=== PATIENT | female | born 1950 | race Caucasian/White ===

== ENCOUNTER 2021-09-20 04:28 | Emergency (ER) | payer OTHER ==
[2021-09-20 04:56] LABS: Absolute Lymphocytes (CBC) 0.4 K/uL (0.7-4.9); Hematocrit 42.8 % (36.0-45.0); Lymphocytes % 2.9 % (15.3-44.8); RBC Red Blood Cell Count 5.05 M/uL (3.86-4.86)
[2021-09-20] MEDS ORDERED: FAMOTIDINE 20 MG/2 ML VIAL IV ONE (05:00)
[2021-09-20] MEDS ORDERED: NA CHLORIDE 0.9% 1,000 ML ONE ×2 (05:00→07:00)
[2021-09-20] MEDS ORDERED: ONDANSETRON 4 MG/2 ML VIAL ONE (05:03)
[2021-09-20 05:15] LABS: Albumin 4.3 g/dL (3.4-5.0); Bilirubin Total 0.8 mg/dL (0.2-1.0); Potassium 3.7 mmol/L (3.5-5.1); Protein, Total 9.2 g/dL (6.4-8.2)
[2021-09-20 05:24] LABS: Blood Morphology Comment NOT SEEN (NOT SEEN); Platelet Estimate ADEQ
[2021-09-20] MEDS ORDERED: PROMETHAZINE INJ 25 MG/ML AMP ONE (06:59)
[2021-09-20] MEDS ORDERED: METRONIDAZOLE 500mg IVPB 500 MG/100 ML BAG IV ONE (06:59)
[2021-09-20] MEDS ORDERED: CIPROFLOXACIN 400mg IV 400 MG/200 ML BAG IV ONE (06:59)
--- NOTE | 2021-09-20 08:55 | ER ---
Nurse's Notes [facility] Name: Ema Haywood Age: 70 yrs Sex: Female : 1950 Arrival Date: 09/20/2021 Time: 04:31 Bed 6 Private MD: Diagnosis: Abdominal pain, Generalized;Infectious gastroenteritis and colitis, unspecified Presentation: 09/20 04:44 Chief complaint: Patient states: nausea, vomiting, diarrhea started at midnight. al4 Coronavirus screen: Vaccine status: Patient reports receiving the 2nd dose of the covid vaccine. Ebola Screen: No symptoms or risks identified at this time. Risk Assessment: Do you want to hurt yourself or someone else? Patient reports no desire to harm self or others. Onset of symptoms was September 20, 2021. 04:44 Method Of Arrival: Wheelchair al4 04:44 Acuity: PEYMAN 3 al4 04:53 Initial Sepsis Screen: Does the patient meet any 2 criteria? No. Patient's initial al4 sepsis screen is negative. Does the patient have a suspected source of infection? No. Patient's initial sepsis screen is negative. Triage Assessment: 04:46 General: Appears uncomfortable, Behavior is calm, cooperative. Pain: Complains of pain al4 in abdomen. Neuro: Level of Consciousness is awake, alert, obeys commands, Oriented to person, place, time, situation. Cardiovascular: Capillary refill < 3 seconds Patient's skin is warm and dry. Respiratory: Airway is patent Respiratory effort is unlabored, Respiratory pattern is regular. GI: Reports diarrhea, nausea, vomiting. Historical: - Allergies: 04:46 Sulfa (Sulfonamide Antibiotics); al4 04:46 IV contrast; al4 04:49 NSAIDS; al4 04:49 sulfates; al4 - Immunization history:: Adult Immunizations up to date. - Social history:: Smoking status: Patient denies any tobacco usage or history of. - Family history:: not pertinent. - Hospitalizations: : No recent hospitalization is reported. Screenin:16 Abuse screen: Denies threats or abuse. Nutritional screening: No deficits noted. jd3 Tuberculosis screening: No symptoms or risk factors identified. Fall Risk Ambulatory Aid- None/Bed Rest/Nurse Assist (0 pts). Gait- Normal/Bed Rest/Wheelchair (0 pts) Mental Status- Oriented to own ability (0 pts). Total Mcleod Fall Scale indicates No Risk (0-24 pts). Assessment: 05:48 Reassessment: RN educated patient on the need for a urine sample. Patient states she al4 does not think she can go at this time. 05:51 General: Appears in no apparent distress. Behavior is calm, cooperative, patient states al4 she is having muscle cramps that started at home [employer] . Pain: Complains of pain in abdomen. Neuro: Level of Consciousness is awake, alert, obeys commands, Oriented to person, place, time, situation. Cardiovascular: Patient's skin is warm and dry. Rhythm is regular. Respiratory: Airway is patent Respiratory effort is unlabored, Respiratory pattern is regular. GI: Bowel sounds present X 4 quads. Abd is soft and non tender X 4 quads. GI: Reports nausea, vomiting. GI: Abdomen is non-distended. : No signs and/or symptoms were reported regarding the genitourinary system. Musculoskeletal: Circulation, motion, and sensation intact. 06:42 Reassessment: Patient appears in no apparent distress at this time. Patient is alert, al4 oriented x 3, equal unlabored respirations, skin warm/dry/pink. 06:53 Reassessment: MD Kiran notified of the need for urine. MD ordered more fluids to al4 encourage patient to void. 07:14 General: Appears in no apparent distress. comfortable, Behavior is calm, cooperative, jd3 appropriate for age. Pain: Complains of pain in abdomen. Neuro: Anderson Agitation-Sedation Scale (RASS): 0 - Alert and Calm Level of Consciousness is awake, alert, obeys commands, Oriented to person, place, time, situation. Cardiovascular: Capillary refill < 3 seconds Patient's skin is warm and dry. Respiratory: Airway is patent Respiratory effort is even, unlabored, Respiratory pattern is regular, symmetrical. GI: Abdomen is non-distended, Abd is soft and non tender X 4 quads. Reports lower abdominal pain, upper abdominal pain, nausea, vomiting. : No signs and/or symptoms were reported regarding the genitourinary system. EENT: No signs and/or symptoms were reported regarding the EENT system. Derm: Skin is intact, Skin is dry, Skin is normal, Skin temperature is warm. Musculoskeletal: Circulation, motion, and sensation intact. Range of motion: intact in all extremities. 08:27 Reassessment: Patient appears in no apparent distress at this time. Patient and/or jd3 family updated on plan of care and expected duration. Pain level reassessed. Patient is alert, oriented x 3, equal unlabored respirations, skin warm/dry/pink. awaiting results and disposition. 08:54 Reassessment: Patient appears in no apparent distress at this time. Patient and/or jd3 family updated on plan of care and expected duration. Pain level reassessed. Patient is alert, oriented x 3, equal unlabored respirations, skin warm/dry/pink. pt reporting slight cramps with PO challenge, but reports no nausea and feeling better. provider notified. Vital Signs: 04:49 Weight 59.87 kg; Height 5 ft. 1 in. (154.94 cm); al4 04:49 BP 116 / 64; Pulse 69; Resp 12 S; Temp 97.7(O); Pulse Ox 100% on R/A; Pain 9/10; al4 06:06 BP 120 / 79; Pulse 71; Resp 18 S; Pulse Ox 100% on R/A; al4 07:15 BP 147 / 99; Pulse 112; Resp 18 S; Pulse Ox 95% on R/A; jd3 08:27 BP 114 / 69; Pulse 82; Resp 16 S; Pulse Ox 100% on R/A; jd3 04:49 Body Mass Index 24.94 (59.87 kg, 154.94 cm) al4 ED Course: 04:31 Patient arrived in ED. bp1 04:31 Hilario Kiran MD is Attending Physician. rn 04:44 Fili Keith is Primary Nurse. al4 04:46 Triage completed. al4 04:46 Arm band placed on. al4 04:51 Inserted saline lock: 20 gauge in left antecubital area, using aseptic technique. Blood lp1 collected. 05:03 CT Abd/Pelvis - Without Contrast In Process Unspecified. EDMS 07:16 Patient has correct armband on for positive identification. Bed in low position. Call jd3 light in reach. Side rails up X2. Pulse ox on. NIBP on. 07:17 Primary Nurse role handed off by Fili Keith jd3 07:17 Damaso Loredo RN is Primary Nurse. jd3 07:25 Attending Physician role handed off by Hilario Kiran MD kdr 07:25 Todd Collins MD is Attending Physician. kdr 09:31 No provider procedures requiring assistance completed. IV discontinued, intact, jd3 bleeding controlled, No redness/swelling at site. Pressure dressing applied. Administered Medications: 05:07 Drug: Zofran (Ondansetron) 4 mg Route: IVP; Site: left antecubital; al4 05:55 Follow up: Response: No adverse reaction al4 05:09 Drug: Pepcid (famotidine) 20 mg Route: IVP; Site: left antecubital; al4 05:55 Follow up: Response: No adverse reaction al4 05:12 Drug: NS 0.9% 1000 ml Route: IV; Rate: 1 bolus; Site: left antecubital; al4 06:06 Follow up: Response: No adverse reaction; IV Status: Completed infusion al4 06:59 Drug: NS 0.9% 1000 ml Route: IV; Rate: 1000 ml; Site: left antecubital; lg3 07:55 Follow up: Response: No adverse reaction; IV Status: Completed infusion jd3 06:59 Drug: Phenergan (promethazine) 12.5 mg Route: IVP; Site: left antecubital; lg3 07:51 Follow up: Response: No adverse reaction jd3 06:59 Drug: Flagyl (metroNIDAZOLE) 500 mg Volume: 100 ml; Route: IVPB; Rate: 200 ml/hr; lg3 Infused Over: 30 mins; Site: left antecubital; 07:15 Follow up: Response: No adverse reaction; IV Status: Completed infusion jd3 07:44 Drug: Cipro (ciprofloxacin) 400 mg Volume: 200 ml; Route: IVPB; Infused Over: 60 mins; jd3 Site: left antecubital; 08:41 Follow up: Response: No adverse reaction; IV Status: Completed infusion jd3 Outcome: 08:55 Discharge ordered by . kdr 09:31 Discharged to home via wheelchair, with family. jd3 09:31 Condition: stable 09:31 Discharge instructions given to patient, family, Instructed on discharge instructions, follow up and referral plans. medication usage, Demonstrated understanding of instructions, follow-up care, medications, Prescriptions given X 2. 09:34 Patient left the ED. jd3 Signatures: Dispatcher [employer] EDMS Todd Collins MD MD kdr Nieto, Roman, MD MD rn Pena, Laura, RN RN lp1 Damaso Loredo RN RN jd3 Ritu Chavez RN RN lg3 Keiko Waller Alexis al4 Corrections: (The following items were deleted from the chart) 08:54 08:54 Reassessment: Patient appears in no apparent distress at this time. Patient jd3 and/or family updated on plan of care and expected duration. Pain level reassessed. Patient is alert, oriented x 3, equal unlabored respirations, skin warm/dry/pink. pt reporting slight cramps with PO challenge, but reports no nausea and feeling better. jd3
--- NOTE | 2021-09-20 08:55 | EDPHYS ---
Physician Documentation [facility] Name: Ema Haywood Age: 70 yrs Sex: Female : 1950 Arrival Date: 09/20/2021 Time: 04:31 Bed 6 Private MD: ED Physician Todd Collins HPI: 09/20 04:43 This 70 yrs old Female presents to ER via Unassigned with complaints of rn Vomiting/Diarrhea, Pain All Over. 04:43 The patient presents to the emergency department with nausea, vomiting, diarrhea, rn abdominal pain, of the right lower quadrant, described as crampy, and does not radiate. Onset: The symptoms/episode began/occurred 3 day(s) ago. Possible causes: unknown. The symptoms are aggravated by nothing. The symptoms are alleviated by nothing. Associated signs and symptoms: Pertinent positives: abdominal pain, anorexia, diarrhea, nausea, vomiting, Pertinent negatives: GI bleeding. Severity of symptoms: At their worst the symptoms were moderate in the emergency department the symptoms are unchanged. The patient has not experienced similar symptoms in the past. The patient has not recently seen a physician. Pt reports right lower abd pain, cramping, assoc with nausea/vomiting/diarrhea for a few days, states multiple family members with similar symptoms currently at home. NO cough/congestion/chest pain.. Historical: - Allergies: 04:46 Sulfa (Sulfonamide Antibiotics); al4 04:46 IV contrast; al4 04:49 NSAIDS; al4 04:49 sulfates; al4 - Immunization history:: Adult Immunizations up to date. - Social history:: Smoking status: Patient denies any tobacco usage or history of. - Family history:: not pertinent. - Hospitalizations: : No recent hospitalization is reported. ROS: 04:43 Constitutional: + chills Eyes: Negative for injury, pain, redness, and discharge, ENT: rn Negative for injury, pain, and discharge, Neck: Negative for injury, pain, and swelling, Cardiovascular: Negative for chest pain, palpitations, and edema, Respiratory: Negative for shortness of breath, cough, wheezing, and pleuritic chest pain, Abdomen/GI: + abd cramping and nausea/vomiting/diarrhea Back: Negative for injury and pain, : Negative for injury, bleeding, discharge, and swelling, MS/Extremity: Negative for injury and deformity, Skin: Negative for injury, rash, and discoloration, Neuro: + generalized weakness and fatigue. Exam: 04:43 Constitutional: This is a well developed, well nourished patient who is awake, alert, rn appears like doesn't feel well. Able to move from wheelchair to bed on her own power. Head/Face: Normocephalic, atraumatic. Eyes: Periorbital areas with no swelling, redness, or edema. ENT: dry MM Cardiovascular: Regular rate and rhythm Respiratory: No increased work of breathing, no retractions or nasal flaring. Abdomen/GI: Soft, mild RLQ tenderness, no reobund/guarding. Skin: Warm, dry MS/ Extremity: Pulses equal, no cyanosis. Neuro: Awake and alert, GCS 15 Vital Signs: 04:49 Weight 59.87 kg; Height 5 ft. 1 in. (154.94 cm); al4 04:49 BP 116 / 64; Pulse 69; Resp 12 S; Temp 97.7(O); Pulse Ox 100% on R/A; Pain 9/10; al4 06:06 BP 120 / 79; Pulse 71; Resp 18 S; Pulse Ox 100% on R/A; al4 07:15 BP 147 / 99; Pulse 112; Resp 18 S; Pulse Ox 95% on R/A; jd3 08:27 BP 114 / 69; Pulse 82; Resp 16 S; Pulse Ox 100% on R/A; jd3 04:49 Body Mass Index 24.94 (59.87 kg, 154.94 cm) al4 MDM: 04:31 Patient medically screened. rn 06:50 ED course: Pt still nauseated, hasn't given urine, ordered more fluids and phenergan. rn Will sign out to Dr. Collins with plans to reeval and PO challenge. . 06:57 Transition of care: After a detail discussion of the patient's case, care is rn transferred to Todd Collins MD. 08:37 Data reviewed: vital signs, nurses notes, lab test result(s), radiologic studies. kdr Counseling: I had a detailed discussion with the patient and/or guardian regarding: the historical points, exam findings, and any diagnostic results supporting the discharge/admit diagnosis, lab results, radiology results. ED course: Patient states that she is feeling better at this time. She is no longer nauseated. She feels a little soreness in her abdomen but otherwise is at her baseline. We will try a p.o. challenge and if she tolerates that, she will go home on antibiotics and anti-emesis medication. 09/20 04:31 Order name: Flu; Complete Time: 07:42 rn 09/20 04:42 Order name: CBC with Diff; Complete Time: 06:43 rn 09/20 04:42 Order name: CMP; Complete Time: 06:43 rn 09/20 04:42 Order name: Lipase; Complete Time: 06:43 rn 09/20 04:43 Order name: SARS-COV-2 RT PCR (Document "Date of Onset" if Symptomatic) rn 09/20 04:42 Order name: CT Abd/Pelvis - Without Contrast rn 09/20 04:59 Order name: Manual Differential; Complete Time: 06:43 EDMS 09/20 04:42 Order name: IV Saline Lock; Complete Time: 05:14 rn 09/20 04:42 Order name: Labs collected and sent; Complete Time: 05:14 rn 09/20 04:42 Order name: Cardiac monitoring; Complete Time: 04:53 rn 09/20 08:37 Order name: PO challenge; Complete Time: 08:53 kdr Administered Medications: 05:07 Drug: Zofran (Ondansetron) 4 mg Route: IVP; Site: left antecubital; al4 05:55 Follow up: Response: No adverse reaction al4 05:09 Drug: Pepcid (famotidine) 20 mg Route: IVP; Site: left antecubital; al4 05:55 Follow up: Response: No adverse reaction al4 05:12 Drug: NS 0.9% 1000 ml Route: IV; Rate: 1 bolus; Site: left antecubital; al4 06:06 Follow up: Response: No adverse reaction; IV Status: Completed infusion al4 06:59 Drug: NS 0.9% 1000 ml Route: IV; Rate: 1000 ml; Site: left antecubital; lg3 07:55 Follow up: Response: No adverse reaction; IV Status: Completed infusion jd3 06:59 Drug: Phenergan (promethazine) 12.5 mg Route: IVP; Site: left antecubital; lg3 07:51 Follow up: Response: No adverse reaction jd3 06:59 Drug: Flagyl (metroNIDAZOLE) 500 mg Volume: 100 ml; Route: IVPB; Rate: 200 ml/hr; lg3 Infused Over: 30 mins; Site: left antecubital; 07:15 Follow up: Response: No adverse reaction; IV Status: Completed infusion jd3 07:44 Drug: Cipro (ciprofloxacin) 400 mg Volume: 200 ml; Route: IVPB; Infused Over: 60 mins; jd3 Site: left antecubital; 08:41 Follow up: Response: No adverse reaction; IV Status: Completed infusion jd3 Disposition Summary: 09/20/21 08:55 Discharge Ordered Location: Home kdr Problem: new kdr Symptoms: have improved kdr Condition: Stable kdr Diagnosis - Abdominal pain, Generalized kdr - Infectious gastroenteritis and colitis, unspecified kdr Followup: kdr - With: Private Physician - When: 2 - 3 days - Reason: If symptoms return, Further diagnostic work-up, Recheck today's complaints, Continuance of care, Re-evaluation by your physician Discharge Instructions: - Discharge Summary Sheet kdr Forms: - Medication Reconciliation Form kdr - Thank You Letter kdr - Antibiotic Education kdr Prescriptions: - Flagyl 500 mg Oral Tablet - take 1 tablet by ORAL route every 8 hours for 7 days; 21 tablet; Refills: 0, kdr Product Selection Permitted - Cipro 500 mg Oral Tablet - take 1 tablet by ORAL route every 12 hours for 7 days; 14 tablet; Refills: 0, kdr Product Selection Permitted - Pepcid 20 mg Oral Tablet - take 1 tablet by ORAL route every 12 hours for 5 days; 10 tablet; Refills: 0, kdr Product Selection Permitted - Zofran 4 mg Oral Tablet - take 1 tablet by ORAL route every 4-6 hours As needed; 12 tablet; Refills: 0, kdr Product Selection Permitted Signatures: Dispatcher [employer] Todd Hassan MD MD kdr Hilario Kiran MD MD rn Davies, Jonathon, RN RN jd3 Ritu Chavez RN RN lg3 Fili Keith
[2021-09-20 09:40] VITALS: TEMP 97.7
[2021-09-20 09:44] VITALS: BP 114/69; O2SAT 100
--- NOTE | 2021-09-20 15:58 | RAD REPORT ---
EXAM DESCRIPTION: CT - Abdomen Pelvis Wo Contrast - 09/20/2021 6:32 am CLINICAL HISTORY: Abdominal pain, acute, nonlocalized COMPARISON: None. TECHNIQUE: CT ABDOMEN PELVIS WITHOUT IV CONTRAST on 09/20/2021 4:42 AM CDT This exam was performed according to our departmental dose-optimization program, which includes autom ated exposure control, adjustment of the mA and/or kV according to patient size and/or use of iterati ve reconstruction technique. FINDINGS: Lower lungs are clear. Abdomen: There is a single ill-defined lateral right hepatic lobe low-density nodule measuring 1.1 cm . There is no biliary dilatation. There are tiny layering gallstones in the gallbladder. There is a s mall hiatal hernia. The pancreas and spleen are normal in appearance. Adrenal glands are normal. Kidn eys are mildly atrophic. Abdominal aorta is normal in course and caliber without aneurysm. There is no free air. There is no r etroperitoneal adenopathy. Pelvis: There is fluid throughout especially the proximal colon. There are scattered fluid throughout multiple small bowel loops without significant dilatation there is a central calcification within th e small bowel mesentery measuring 1 cm. Urinary bladder is unremarkable. There is no free fluid. Uter us is not seen. Appendix is not seen. Skeleton: There are no acute osseous findings. No suspicious bony lesions. IMPRESSION: Probable areas of small and large bowel enteritis. Indeterminate calcified nodule/lymph node in the central mesentery. Electronically signed by: Ryan Ferrer MD 09/20/2021 5:58 AM CDT Due to temporary technical issues with the PACS/Fluency reporting system, reports are being signed by the in house radiologists without review as a courtesy to insure prompt reporting. The interpreting radiologist is fully responsible for the content of the report.
== END 2021-09-20 09:34 | disposition home or self-care (01) ==
LOC: ER 04:28
DX: A09 Infectious gastroenteritis and colitis, unspecified (principal); Z88.2 Allergy status to sulfonamides; Z88.6 Allergy status to analgesic agent; Z91.041 Radiographic dye allergy status; Z20.822 Contact with and (suspected) exposure to COVID-19
CPT/HCPCS: 96365; 96367; 96361; 85025; 36415; 83690; 80053; 87804 ×2; 74176; 96375; 99284; U0003; J2550; J7030 ×2; J3490 ×2; J2405; J0744

== ENCOUNTER 2024-04-24 23:21 | Emergency (ER) | payer OTHER ==
[2024-04-25 00:23] LABS: Absolute Basophils 0.1 K/uL (0-0.5); Absolute Eosinophils 0.5 K/uL (0-0.5); Absolute Monocytes 0.6 K/uL (0.1-1.3); Absolute Neutrophil 3.2 K/uL (1.8-8.0); Basophils % 1.4 % (0-1.3); Eosinophils % 7.8 % (0-4.4); Hematocrit 39.2 % (36.0-45.0); Lymphocytes % 31.3 % (15.3-44.8); MCH 28.8 pg (27.0-35.0); MCHC 33.3 g/dL (32.0-36.0); MCV 86.7 fL (80-100); MPV 8.6 fL (7.6-11.3); Neutrophils % 50.5 % (41.7-73.7); Nucleated Red Blood Cells % 0.2 % (0-0); Platelets 262 thou/uL (152-406); RBC Red Blood Cell Count 4.52 M/uL (3.86-4.86); Red Cell Distribution Width 12.9 % (12.1-15.2)
[2024-04-25 00:24] LABS: PT Prothrombin Time 11.2 SECONDS (9.4-12.5)
[2024-04-25 00:36] LABS: ALT/SGPT 27 U/L (13-56); AST/SGOT 23 U/L (15-37); Albumin 3.7 g/dL (3.4-5.0); Albumin/Globulin Ratio 0.9 (1.1-1.8); Alkaline Phosphatase 89 U/L (45-117); Anion Gap 8.7 mEq/L (5.0-15.0); BUN Blood Urea Nitrogen 14 mg/dL (7-18); Bicarbonate 27 mEq/L (21-32); Bilirubin Total 0.3 mg/dL (0.2-1.0); Globulin 4.1 g/dL (2.3-3.5); Glomerular Filtration Rate 81 ml/min (=/>90); Glucose Level 100 mg/dL (74-106); Magnesium 1.8 mg/dL (1.6-2.4); NT PRO-BNP 55 pg/mL (<125); Potassium 2.7 mEq/L (3.5-5.1); Protein, Total 7.8 g/dL (6.4-8.2); Sodium Level 139 mEq/L (136-145)
[2024-04-25 00:37] LABS: Bilirubin Direct < 0.2 mg/dL (0-0.2); Bilirubin Indirect, Calculated 0.1 mg/dL (0.2-0.8)
[2024-04-25 01:00] LABS: Thyroid Stimulating Hormone 0.708 uIU/mL (0.358-3.740)
[2024-04-25] MEDS ORDERED: methocarbamoL 750 MG TAB ONE (01:43)
[2024-04-25] MEDS ORDERED: HYDROCODONE/APAP 5/325 MG TAB ONE (01:43)
--- NOTE | 2024-04-25 04:02 | EDPHYS ---
Physician Documentation [facility] Name: Ema Haywood Age: 73 yrs Sex: Female : 1950 Arrival Date: 04/24/2024 Time: 23:21 Bed 3 Private MD: ED Physician Owen Shanks HPI: 04/24 23:26 This 73 yrs old Female presents to ER via Unassigned with complaints of Chest sp4 Pressure, High Blood Pressure. 04/25 20:09 Very pleasant 73-year-old female presents with stress related bilateral shoulder pain sp4 back pain chest discomfort shortness of breath and elevated blood pressure.. Patient reports that she takes lisinopril HCTZ 20-12.5 mg daily. Levothyroxine 80 mcg daily. Patient states she has been under a lot of stress daily and her pressure runs 160/90 instead of her regular 130/80. Historical: - Allergies: 04/24 23:23 IV contrast; vc1 23:23 NSAIDS; vc1 23:23 Sulfa (Sulfonamide Antibiotics); vc1 23:23 sulfates; vc1 23:23 Metoprolol Tartrate; vc1 23:23 Codeine; vc1 - Home Meds: 23:23 lisinopril-hydrochlorothiazide 20-12.5 mg oral tablet [Active]; fluoxetine 40 mg Oral vc1 capsule [Active]; levothyroxine 88 mcg capsule [Active]; cyclobenzaprine 10 mg Oral tablet [Active]; - PMHx: 23:23 Hypertensive disorder; Hypothyroidism; Anxiety; vc1 - PSHx: 23:23 teeth extracted; section; right hip; bilateral knees; vc1 - Immunization history:: Client reports receiving the 2nd dose of the Covid vaccine. - Infectious Disease History:: Denies. - Social history:: Smoking status: Patient denies any tobacco usage or history of. - Family history:: not pertinent. ROS: 04/25 20:09 Constitutional: Negative for fever, chills, and weight loss, positive for chest sp4 pressure positive for elevated blood pressure All other systems are negative, Exam: 20:09 Constitutional: This is a well developed, well nourished patient who is awake, alert, sp4 and in no acute distress. Head/Face: Normocephalic, atraumatic. Eyes: Pupils equal round and reactive to light, extra-ocular motions intact. Lids and lashes normal. Conjunctiva and sclera are not injected. Cornea within normal limits. Periorbital areas with no swelling, redness, or edema. ENT: Nares patent. No nasal discharge, no septal abnormalities noted. Tympanic membranes are normal and external auditory canals are clear. Oropharynx with no redness, swelling, or masses, exudates, or evidence of obstruction, uvula midline. Mucous membranes moist. Neck: Trachea midline, no thyromegaly or masses palpated, and no cervical lymphadenopathy. Supple, full range of motion without nuchal rigidity, or vertebral point tenderness. Chest/axilla: Normal chest wall appearance and motion. Nontender with no deformity. No lesions are appreciated. Cardiovascular: Regular rate and rhythm with a normal S1 and S2. No gallops, murmurs, or rubs. Normal PMI, no JVD. No pulse deficits. Respiratory: Lungs have equal breath sounds bilaterally, clear to auscultation and percussion. No rales, rhonchi or wheezes noted. No increased work of breathing, no retractions or nasal flaring. Abdomen/GI: Soft, with normal bowel sounds. No distension or tympany. No guarding or rebound. No evidence of tenderness throughout. Back: No spinal tenderness. No costovertebral tenderness. Skin: Warm, dry with normal turgor. Normal color with no rashes, no lesions, and no evidence of cellulitis. MS/ Extremity: Pulses equal, no cyanosis. Neurovascular intact. Full, normal range of motion. Neuro: Awake and alert, GCS 15, oriented to person, place, time, and situation. Cranial nerves II-XII grossly intact. Motor strength 5/5 in all extremities. Sensory grossly intact. Psych: Awake, alert, with orientation to person, place and time. Behavior, mood, and affect are within normal limits 20:09 ECG was reviewed by the Attending Physician. EG at 2333 normal sinus rhythm normal EKG Vital Signs: 04/24 23:23 BP 181 / 92; Pulse 81; Resp 17; Temp 98.5; Pulse Ox 97% ; Weight 61.23 kg; Height 5 ft. vc1 1 in. ; Pain 0/10; 04/25 00:21 BP 165 / 94; Pulse 74; Resp 16; Pulse Ox 98% on R/A; dd2 01:00 BP 146 / 75; Pulse 70; Resp 16; Pulse Ox 97% ; dd2 02:13 BP 142 / 69; Pulse 68; Resp 15; Pulse Ox 97% on R/A; dd2 02:50 BP 127 / 79; Pulse 68; Resp 14; Pulse Ox 95% on R/A; al5 04:30 BP 133 / 68; Pulse 64; Resp 15; Temp 98.1; Pulse Ox 98% ; dd2 04/24 23:23 Body Mass Index 25.51 (61.23 kg, 154.94 cm) vc1 04/24 23:23 Pain Scale: Adult vc1 [place] Coma Score: 00:10 Eye Response: spontaneous(4). Motor Response: obeys commands(6). Verbal Response: dd2 oriented(5). Total: 15. 20:09 Eye Response: spontaneous(4). Motor Response: obeys commands(6). Verbal Response: sp4 oriented(5). Total: 15. MDM: 00:26 Medical Screening Exam initiated sp4 02:35 ED course: EXAM: XR Chest, 1 View CLINICAL HISTORY: The patient is 73 years old and is sp4 Female; CHEST PAIN TECHNIQUE: Frontal view of the chest. COMPARISON: No relevant prior studies available. FINDINGS: LUNGS: Unremarkable. No consolidation. PLEURAL SPACE: Unremarkable. No pneumothorax. HEART: Unremarkable. No cardiomegaly. MEDIASTINUM: Unremarkable. Normal mediastinal contour. BONES/JOINTS: Healed left clavicular fracture is present. VASCULATURE: Atherosclerosis of the aorta is present. UPPER ABDOMEN: Unremarkable as visualized. IMPRESSION: No acute cardiopulmonary process. . 20:14 Differential diagnosis: acute pericarditis, esophagitis, gastritis. HEART Score: sp4 History: Slightly Suspicious (0), ECG: Normal (0), Age: > or = 65 years (2), Risk Factors: 1 or 2 risk factors (1), Troponin: < or = 1 x Normal Limit (0), Total Score = 3. The patient was not given aspirin in the Emergency Department. Aspirin not given, patient refused. Data reviewed: vital signs, nurses notes, lab test result(s), EKG, radiologic studies, plain films. ED course: Workup today is negative. Patient stable for discharge home. will Prescribe Robaxin for muscle soreness.. 04/24 23:26 Order name: Basic Metabolic Panel; Complete Time: 02:29 sp4 04/24 23:26 Order name: CBC with Diff; Complete Time: 02:29 sp4 04/24 23:26 Order name: LFT's; Complete Time: 02:29 sp4 04/24 23:26 Order name: Magnesium; Complete Time: 02:29 sp4 04/24 23:26 Order name: NT PRO-BNP; Complete Time: 02:29 sp4 04/24 23:26 Order name: PT-INR; Complete Time: 02:29 sp4 04/24 23:26 Order name: Troponin HS; Complete Time: 02:29 sp4 04/25 00:44 Order name: T4 Free; Complete Time: 02:29 EDMS 04/25 00:44 Order name: Thyroid Stimulating Hormone; Complete Time: 02:29 EDMS 04/25 02:30 Order name: Troponin High Sensitivity; Complete Time: 03:59 sp4 04/24 23:26 Order name: XRAY Chest (1 view) 4 04/24 23:26 Order name: EKG; Complete Time: 23:27 sp4 04/24 23:26 Order name: Cardiac monitoring; Complete Time: 23:50 sp4 04/24 23:26 Order name: EKG - Nurse/Tech; Complete Time: 23:38 sp4 04/24 23:26 Order name: IV Saline Lock; Complete Time: 23:58 sp4 04/24 23:26 Order name: Labs collected and sent; Complete Time: 23:58 sp4 04/24 23:26 Order name: O2 Per Protocol; Complete Time: 23:38 sp4 04/24 23:26 Order name: O2 Sat Monitoring; Complete Time: 23:38 sp4 EC/12 23:33 Rate is 77 beats/min. Rhythm is regular, Normal Sinus Rhythm. QRS [place] is Normal. MD sp4 interval is normal. QRS interval is normal. QT interval is normal. No Q waves. T waves are Normal. No ST changes noted. Clinical impression: Normal ECG. Interpreted by me. Reviewed by me. Administered Medications: 04/25 01:45 Drug: HYDROcodone-acetaminophen PO 5 mg-325 mg 1 tabs PO once Route: PO; al5 02:15 Follow up: Response: No adverse reaction dd2 01:45 Drug: Methocarbamol PO 750 mg PO once Route: PO; al5 02:15 Follow up: Response: No adverse reaction dd2 04:30 Drug: Potassium PO Effervescent Tablet 50 mEq PO once; dissolve in 4 ounces of water or dd2 juice Route: PO; 04:47 Follow up: Response: Medication administered at discharge. dd2 Disposition Summary: 04/25/24 04:01 Discharge Ordered Notes: Location: Home sp4 Problem: new sp4 Symptoms: have improved sp4 Condition: Stable sp4 Diagnosis - Essential (primary) hypertension sp4 - Stress related hypertension, acute hypokalemia , noncardiac chest pain sp4 Followup: sp4 - With: Private Physician - When: 7 - 10 days - Reason: Recheck today's complaints Discharge Instructions: - Discharge Summary Sheet sp4 - Hypertension, Adult, [id number] sp4 Forms: - Patient Portal Instructions sp4 Prescriptions: - methocarbamol 750 mg Oral tablet - take 2 tablet ORAL route every 8 hours for 2 days PRN muscular pain; 60 tablet; sp4 Refills: 0, Product Selection Permitted Signatures: Dispatcher [employer] EDCarrie Pemberton RN RN vc1 Owen Shanks MD MD sp4 Subha Zee RN RN al5 EMILY CORNELIUS RN RN dd2 Corrections: (The following items were deleted from the chart) 00:43 00:37 THYROID STIMULAT HORMONE+C.LAB.BRZ ordered. EDMS EDMS 00:43 00:37 T4 FREE+C.LAB.BRZ ordered. EDMS EDMS
--- NOTE | 2024-04-25 04:02 | ER ---
Nurse's Notes [facility] Name: Ema Haywood Age: 73 yrs Sex: Female : 1950 Arrival Date: 04/24/2024 Time: 23:21 Bed 3 Private MD: Diagnosis: Essential (primary) hypertension;Stress related hypertension, acute hypokalemia , noncardiac chest pain Presentation: 04/24 23:23 Chief complaint: Patient states: blood pressure for the last 2 days with chest pressure.vc1 23:23 Coronavirus screen: Client denies travel out of the [place] in the last 14 days. At this vc1 time, the client does not indicate any symptoms associated with coronavirus-19. Ebola Screen: Patient negative for fever greater than or equal to 101.5 degrees Fahrenheit, and additional compatible Ebola Virus Disease symptoms Patient denies exposure to infectious person. Patient denies travel to an Ebola-affected area in the 21 days before illness onset. No symptoms or risks identified at this time. Initial Sepsis Screen: Does the patient meet any 2 criteria? No. Patient's initial sepsis screen is negative. Does the patient have a suspected source of infection? No. Patient's initial sepsis screen is negative. Risk Assessment: Do you want to hurt yourself or someone else? Patient reports no desire to harm self or others. Onset of symptoms was April 23, 2024. Care prior to arrival: None. Activity prior to arrival: None. Mechanism of Injury: No Mechanism of Injury. Transition of care: patient was not received from another setting of care. 23:23 Method Of Arrival: Wheelchair vc1 23:23 Acuity: [place] 3 vc1 Triage Assessment: 23:23 General: Appears in no apparent distress. comfortable, slender, well groomed, well vc1 developed, well nourished, Behavior is calm, cooperative, appropriate for age. Pain: Denies pain. EENT: No deficits noted. No signs and/or symptoms were reported regarding the EENT system. Neuro: Level of Consciousness is awake, alert, obeys commands, Oriented to person, place, time, situation, Appropriate for age. Cardiovascular: Reports chest pressure Heart tones S1 S2 present Capillary refill < 3 seconds Patient's skin is warm and dry. Chest pain is denied. Respiratory: Airway is patent Respiratory effort is even, unlabored, Respiratory pattern is regular, symmetrical, Breath sounds are clear bilaterally. GI: No deficits noted. No signs and/or symptoms were reported involving the gastrointestinal system. : No deficits noted. No signs and/or symptoms were reported regarding the genitourinary system. Derm: Skin is intact, is healthy with good turgor, Skin is dry, Skin is normal, Skin temperature is warm. Musculoskeletal: Circulation, motion, and sensation intact. Range of motion: intact in all extremities. Historical: - Allergies: 23:23 IV contrast; vc1 23:23 NSAIDS; vc1 23:23 Sulfa (Sulfonamide Antibiotics); vc1 23:23 sulfates; vc1 23:23 Metoprolol Tartrate; vc1 23:23 Codeine; vc1 - Home Meds: 23:23 lisinopril-hydrochlorothiazide 20-12.5 mg oral tablet [Active]; fluoxetine 40 mg Oral vc1 capsule [Active]; levothyroxine 88 mcg capsule [Active]; cyclobenzaprine 10 mg Oral tablet [Active]; - PMHx: 23:23 Hypertensive disorder; Hypothyroidism; Anxiety; vc1 - PSHx: 23:23 teeth extracted; section; right hip; bilateral knees; vc1 - Immunization history:: Client reports receiving the 2nd dose of the Covid vaccine. - Infectious Disease History:: Denies. - Social history:: Smoking status: Patient denies any tobacco usage or history of. - Family history:: not pertinent. Screenin/13 00:04 [facility] ED Fall Risk Assessment (Adult) History of falling in the last 3 months, vc1 including since admission No falls in past 3 months (0 pts) Confusion or Disorientation No (0 pts) Intoxicated or Sedated No (0 pts) Impaired Gait No (0 pts) Mobility Assist Device Used No (0 pt) Altered Elimination No (0 pt) Score/Fall Risk Level 0 - 2 = Low Risk Oriented to surroundings, Maintained a safe environment, Educated pt \T\ family on fall prevention, incl call for assistance when getting out of bed. Abuse screen: Denies threats or abuse. Nutritional screening: No deficits noted. Tuberculosis screening: No symptoms or risk factors identified. Assessment: 00:10 General: Appears uncomfortable, Behavior is calm, cooperative, appropriate for age. dd2 Pain: Complains of pain in chest Pain does not radiate. Quality of pain is described as PRESSURE Pain began 2-3 days ago. Neuro: Level of Consciousness is awake, alert, obeys commands, Oriented to person, place, time, situation, Appropriate for age. Cardiovascular: Reports CHEST PRESSURE Heart tones S1 S2 present Patient's skin is warm and dry. Rhythm is sinus rhythm Chest pain PT DENIES PAIN, C/O PRESSURE. Respiratory: Airway is patent Respiratory effort is even, unlabored, Respiratory pattern is regular, symmetrical, Breath sounds are clear bilaterally. GI: No deficits noted. No signs and/or symptoms were reported involving the gastrointestinal system. Abdomen is non-distended, Abd is soft and non tender. : No deficits noted. No signs and/or symptoms were reported regarding the genitourinary system. EENT: No deficits noted. No signs and/or symptoms were reported regarding the EENT system. Derm: No deficits noted. No signs and/or symptoms reported regarding the dermatologic system. Musculoskeletal: No deficits noted. No signs and/or symptoms reported regarding the musculoskeletal system. Circulation, motion, and sensation intact. Range of motion: intact in all extremities. 03:01 Reassessment: Patient and/or family updated on plan of care and expected duration. Pain dd2 level reassessed. Patient is alert, oriented x 3, equal unlabored respirations, skin warm/dry/pink. Patient states feeling better. Patient states symptoms have improved. Vital Signs: 04/24 23:23 BP 181 / 92; Pulse 81; Resp 17; Temp 98.5; Pulse Ox 97% ; Weight 61.23 kg; Height 5 ft. vc1 1 in. ; Pain 0/10; 04/25 00:21 BP 165 / 94; Pulse 74; Resp 16; Pulse Ox 98% on R/A; dd2 01:00 BP 146 / 75; Pulse 70; Resp 16; Pulse Ox 97% ; dd2 02:13 BP 142 / 69; Pulse 68; Resp 15; Pulse Ox 97% on R/A; dd2 02:50 BP 127 / 79; Pulse 68; Resp 14; Pulse Ox 95% on R/A; al5 04:30 BP 133 / 68; Pulse 64; Resp 15; Temp 98.1; Pulse Ox 98% ; dd2 04/24 23:23 Body Mass Index 25.51 (61.23 kg, 154.94 cm) vc1 04/24 23:23 Pain Scale: Adult vc1 [place] Coma Score: 00:10 Eye Response: spontaneous(4). Motor Response: obeys commands(6). Verbal Response: dd2 oriented(5). Total: 15. 20:09 Eye Response: spontaneous(4). Motor Response: obeys commands(6). Verbal Response: sp4 oriented(5). Total: 15. ED Course: 04/24 23:22 Patient arrived in ED. ra3 23:26 Owen Shanks MD is Attending Physician. sp4 23:41 EMILY CORNELIUS RN is Primary Nurse. dd2 23:46 XRAY Chest (1 view) In Process Unspecified. EDMS 23:58 Basic Metabolic Panel Sent. dd2 23:58 CBC with Diff Sent. dd2 23:58 LFT's Sent. dd2 23:58 Magnesium Sent. dd2 23:58 NT PRO-BNP Sent. dd2 23:58 PT-INR Sent. dd2 23:58 Troponin HS Sent. dd2 23:59 No provider procedures requiring assistance completed. Initial lab(s) drawn, by me, dd2 sent to lab. Inserted saline lock: 20 gauge in right antecubital area, using aseptic technique. Blood collected. Flushed with 10 mL NS. Patient maintains SpO2 saturation greater than 95% on room air. 04/25 00:01 Triage completed. vc1 00:04 Arm band placed on right wrist. vc1 00:05 Patient has correct armband on for positive identification. Bed in low position. Call vc1 light in reach. Provided Education on: ekg, call light. monitoring and evaluation advisor on. Pulse ox on. NIBP on. 02:46 Troponin High Sensitivity Sent. oe 04:30 IV discontinued, intact, bleeding controlled, No redness/swelling at site. Pressure dd2 dressing applied. Administered Medications: 01:45 Drug: HYDROcodone-acetaminophen PO 5 mg-325 mg 1 tabs PO once Route: PO; al5 02:15 Follow up: Response: No adverse reaction dd2 01:45 Drug: Methocarbamol PO 750 mg PO once Route: PO; al5 02:15 Follow up: Response: No adverse reaction dd2 04:30 Drug: Potassium PO Effervescent Tablet 50 mEq PO once; dissolve in 4 ounces of water or dd2 juice Route: PO; 04:47 Follow up: Response: Medication administered at discharge. dd2 Medication: 00:05 VIS not applicable for this client. vc1 Outcome: 04:01 Discharge ordered by sp4 04:30 Discharged to home via wheelchair, with family, dd2 04:30 Condition: stable 04:30 Discharge instructions given to patient, family, Instructed on discharge instructions, follow up and referral plans. medication usage, Demonstrated understanding of instructions, follow-up care, medications, Prescriptions given X 1, 04:46 Patient left the ED. dd2 Signatures: Dispatcher [employer] EDMS Broderick Lo Vanessa RN RN vc1 Owen Shanks MD MD sp4 Katy Ohara Amanda, RN RN al5 EMILY CORNELIUS RN RN dd2
[2024-04-25] MEDS ORDERED: POTASSIUM 25 MEQ EFFERV TAB ONE (04:25)
[2024-04-25 04:59] VITALS: BP 133/68; TEMP 98.1; O2SAT 98
--- NOTE | 2024-04-25 05:36 | RAD REPORT ---
EXAM: XR Chest, 1 View CLINICAL HISTORY: The patient is 73 years old and is Female; CHEST PAIN TECHNIQUE: Frontal view of the chest. COMPARISON: No relevant prior studies available. FINDINGS: LUNGS: Unremarkable. No consolidation. PLEURAL SPACE: Unremarkable. No pneumothorax. HEART: Unremarkable. No cardiomegaly. MEDIASTINUM: Unremarkable. Normal mediastinal contour. BONES/JOINTS: Healed left clavicular fracture is present. VASCULATURE: Atherosclerosis of the aorta is present. UPPER ABDOMEN: Unremarkable as visualized. IMPRESSION: No acute cardiopulmonary process. Electronically signed by: Valencia Barnes MD 04/25/2024 12:04 AM [facility] Due to temporary technical issues with the [employer] reporting system, reports are being gracie d by the in-house radiologist without review as a courtesy to ensure prompt reporting the interpreting radiologist is fully responsible for the content of the report. Transcribed Date/Time: 04/25/2024 5:36 AM
--- NOTE | 2024-04-25 14:49 | EKG ---
Test Date: 2024-04-24 Test Time: 23:33:55 Vet Assistant: JOSIE MEASUREMENT RESULTS: Intervals: Rate: 77 [place]: 156 QRSD: 76 QT: 396 QTc: 448 [place]: P: -4 [place]: 156 QRS: 15 T: -1 INTERPRETIVE STATEMENTS: Normal sinus rhythm Normal ECG No previous ECG available for comparison Electronically Signed On 04-25-24 14:48:34 [employer] by Ramón Allen
== END 2024-04-25 04:46 | disposition home or self-care (01) ==
LOC: ER 23:21
DX: I10 Essential (primary) hypertension (principal); E87.6 Hypokalemia; F41.9 Anxiety disorder, unspecified; E03.9 Hypothyroidism, unspecified
CPT/HCPCS: 36415; 71045; 80048; 80076; 83735; 83880; 84439; 84443; 84484; 85025; 85610; 93005; 99284

== ENCOUNTER 2024-05-22 12:53 | Emergency (ER) | payer OTHER ==
[2024-05-22] MEDS ORDERED: DIAZEPAM 10 MG/2 ML INJ SYRINGE ONE (13:39)
[2024-05-22 13:49] LABS: Absolute Basophils 0.1 K/uL (0-0.5); Absolute Eosinophils 0.3 K/uL (0-0.5); Absolute Lymphocytes (CBC) 1.1 K/uL (0.7-4.9); Absolute Monocytes 0.6 K/uL (0.1-1.3); Basophils % 0.7 % (0-1.3); Eosinophils % 3.2 % (0-4.4); Hematocrit 40.6 % (36.0-45.0); Hemoglobin 13.5 g/dL (12.0-15.0); Lymphocytes % 12.1 % (15.3-44.8); MCHC 33.2 g/dL (32.0-36.0); MCV 87.1 fL (80-100); MPV 8.2 fL (7.6-11.3); Monocytes % 6.4 % (3.3-12.3); Neutrophils % 77.6 % (41.7-73.7); Nucleated Red Blood Cells % 0.1 % (0-0); Platelets 271 thou/uL (152-406); RBC Red Blood Cell Count 4.66 M/uL (3.86-4.86); Red Cell Distribution Width 12.9 % (12.1-15.2)
[2024-05-22 14:06] LABS: Anion Gap 10.1 mEq/L (5.0-15.0); Potassium 4.1 mEq/L (3.5-5.1)
--- NOTE | 2024-05-22 14:06 | RAD REPORT ---
EXAMINATION: CT ABDOMEN AND PELVIS WITHOUT CONTRAST CLINICAL INDICATION: fall TECHNIQUE: CT abdomen and pelvis was performed, without IV contrast, as per department protocol. Axia l, sagittal and coronal reconstructions were obtained. One or more of the following dose reduction techniques were used: Automated exposure control, adjustment of the mA and kV according to the patien t size, and iterative reconstruction. Unless otherwise specified, incidental findings do not require dedicated imaging follow-up. COMPARISON: 09/20/2021 FINDINGS: The lack of intravenous contrast limits the sensitivity of this exam for evaluation of solid visceral organs, vascular structures, and retroperitoneum. LOWER CHEST: The visualized lung bases are clear. LIVER:Normal in size and contour. No focal lesion. Cholelithiasis. SPLEEN: Normal size. No focal lesion. PANCREAS: No mass, ductal dilation, or sundeep-pancreatic fluid. ADRENALS: Normal; no mass. KIDNEYS AND URETERS: Normal size and contour. No hydronephrosis. URINARY BLADDER: Normal contour. GASTROINTESTINAL TRACT: No evidence of bowel obstruction, significant free fluid, free air or abscess . APPENDIX: Normal appendix. LYMPH NODES: No lymphadenopathy. MUSCULOSKELETAL: There is a mild anterior compression deformity T12 present which appears acute. Loss of vertebral body height estimated 10%. No canal compromise. ADDITIONAL FINDINGS: None. IMPRESSION: Mild anterior compression deformity of T12 which is likely acute. Loss of vertebral body height is mi ld and no posterior canal compromise. Cholelithiasis.
[2024-05-22] MEDS ORDERED: MORPHINE 4 MG/ML SYR ONE ×2 (14:52→16:33)
--- NOTE | 2024-05-22 15:08 | RAD REPORT ---
EXAMINATION: XR RIGHT FEMUR CLINICAL INDICATION: . fall RIGHT TECHNIQUE: Multiple views of the right femur were obtained. COMPARISON: No prior exam. FINDINGS: Right total knee arthroplasty seen. Proximal right femoral hardware also noted with evidenc e of old trauma. No fracture or dislocation seen.
[2024-05-22] MEDS ORDERED: METHOCARBAMOL 1,000 MG/10 ML VIAL ONE (16:33)
[2024-05-22] MEDS ORDERED: NA CHLORIDE 0.9% 100 ML ONE (16:34)
--- NOTE | 2024-05-22 17:31 | EDPHYS ---
Physician Documentation [facility] Name: Ema Haywood Age: 73 yrs Sex: Female : 1950 Arrival Date: 05/22/2024 Time: 12:53 Bed 18 Private MD: ED Physician Hilario Kiran HPI: 05/22 13:25 This 73 yrs old Female presents to ER via EMS with complaints of Fall Injury. cp 13:25 Details of fall: The patient fell from an upright position, while walking. Onset: The cp symptoms/episode began/occurred just prior to arrival. Associated injuries: The patient sustained upper back injury, pain, pain with movement, injury to the low back, pain, pain with movement. Severity of symptoms: in the emergency department the symptoms have improved, mildly. Patient presents to ED by EMS after trip and fall. Patient reports falling back and landing on buttocks. Denies hitting head and no LOC. Historical: - Allergies: 13:07 Codeine; ap3 13:07 IV contrast; ap3 13:07 Metoprolol Tartrate; ap3 13:07 NSAIDS; ap3 13:07 Sulfa (Sulfonamide Antibiotics); ap3 13:07 sulfates; ap3 - Home Meds: 18:49 cyclobenzaprine 10 mg Oral tablet [Active]; fluoxetine 40 mg Oral capsule [Active]; ko1 levothyroxine 88 mcg capsule [Active]; lisinopril-hydrochlorothiazide 20-12.5 mg Oral tablet [Active]; - PMHx: 13:07 Anxiety; Hypertensive disorder; Hypothyroidism; ap3 - PSHx: 13:07 bilateral knees; section; Right hip; teeth extracted; ap3 - Immunization history:: Client reports receiving the 2nd dose of the Covid vaccine, Flu vaccine is not up to date. - Infectious Disease History:: Denies. - Social history:: Smoking status: Patient denies any tobacco usage or history of. ROS: 13:30 Back: Positive for pain at rest, pain with movement, cp 13:30 Neuro: Negative for altered mental status, headache, loss of consciousness, weakness, cp 13:30 Constitutional: Negative for body aches, chills, fever, poor PO intake, cp 13:30 Eyes: Negative for injury, pain, redness, and discharge, cp 13:30 Neck: Negative for pain with movement, pain at rest, 13:30 Cardiovascular: Negative for chest pain, 13:30 Respiratory: Negative for cough, shortness of breath, wheezing, 13:30 Abdomen/GI: Negative for abdominal pain, nausea, vomiting, and diarrhea, 13:30 All other systems are negative, Exam: 13:35 Constitutional: The patient appears in no acute distress, alert, awake, non-toxic, well cp developed, well nourished, uncomfortable, 13:35 Head/Face: Normocephalic, atraumatic. cp 13:35 Eyes: Periorbital structures: appear normal, Conjunctiva: normal, no exudate, no injection, Sclera: no appreciated abnormality, Lids and lashes: appear normal, bilaterally, 13:35 ENT: External ear(s): are unremarkable, Nose: is normal, Mouth: Lips: moist, Oral mucosa: moist, Posterior pharynx: Airway: no evidence of obstruction, patent, 13:35 Neck: ROM/movement: is normal, is supple, without pain, no range of motions limitations, 13:35 Chest/axilla: Inspection: normal, 13:35 Cardiovascular: Rate: normal, Rhythm: regular, Edema: is not appreciated, JVD: is not appreciated, 13:35 Respiratory: the patient does not display signs of respiratory distress, Respirations: normal, no use of accessory muscles, no retractions, labored breathing, is not present, Breath sounds: are clear throughout, no decreased breath sounds, no stridor, no wheezing, 13:35 Abdomen/GI: Inspection: abdomen appears normal, Palpation: abdomen is soft and non-tender, in all quadrants, 13:35 Back: pain, that is severe, of the lumbar area and mid thoracic area, ROM is painful, with all movement, Straight leg raises: pain bilaterally, 13:35 Musculoskeletal/extremity: Exam is negative for decreased range of motion, deformity, injury, 13:35 Neuro: Orientation: is normal, Mentation: is normal, Motor: moves all fours, no focal deficits, Sensation: is normal, Vital Signs: 13:19 Weight 62.14 kg; Height 5 ft. 1 in. ; ap3 15:07 BP 142 / 94; Pulse 77; Resp 15; Pulse Ox 96% on R/A; ko1 16:22 BP 133 / 78; Pulse 79; Resp 15; Pulse Ox 99% ; ko1 18:10 BP 147 / 82; Pulse 76; Resp 15; Pulse Ox 99% on R/A; ko1 13:19 Body Mass Index 25.89 (62.14 kg, 154.94 cm) ap3 MDM: 13:16 Medical Screening Exam initiated cp 14:00 Differential diagnosis: closed head injury, contusion, fracture, multiple trauma. 17:30 Data reviewed: vital signs, nurses notes, lab test result(s), radiologic studies, CT cp scan, plain films. 17:30 I considered the following discharge prescriptions or medication management in the emergency department Medications were administered in the Emergency Department. See MAR. 17:30 Counseling: I had a detailed discussion with the patient and/or guardian regarding the historical points, exam findings, and any diagnostic results supporting the discharge/admit diagnosis, radiology results. 17:30 Response to treatment: the patient's symptoms have mildly improved after treatment. ED cp course: VSS. Patient continues to have significant pain and unable to ambulate from stretcher due to pain. Will transfer to [facility] for further evaluation. 05/22 13:21 Order name: Basic Metabolic Panel; Complete Time: 14:16 05/22 14:16 Interpretation: Normal except: GLUC 111; GFR 78. 05/22 13:21 Order name: CBC with Diff; Complete Time: 13:54 05/22 13:54 Interpretation: Normal except: SADIQ% 77.6; LYM% 12.1. 05/22 13:21 Order name: Type And Screen 05/22 14:31 Order name: Antibody Identification [facility] 05/22 13:21 Order name: CT Abd/Pelvis - Without Contrast; Complete Time: 14:16 05/22 14:17 Interpretation: Report reviewed. 05/22 14:34 Order name: XRAY Femur RIGHT; Complete Time: 15:11 05/22 15:12 Interpretation: Report reviewed. 05/22 13:21 Order name: Labs collected and sent; Complete Time: 13:38 05/22 14:57 Order name: Vital Signs; Complete Time: 15:08 Administered Medications: 13:51 Drug: Diazepam IVP 2 mg IVP once Route: IVP; Site: right antecubital; ko1 14:06 Follow up: Response: No adverse reaction ko1 14:58 Drug: morphine IVP or IV 4 mg IVP once over 4 mins Route: IVP; Infused Over: 4 mins; ko1 Site: right antecubital; 15:13 Follow up: Response: No adverse reaction ko1 15:23 Drug: Diazepam IVP 2 mg IVP once Route: IVP; Site: right antecubital; ko1 15:38 Follow up: Response: No adverse reaction ko1 16:42 Drug: Methocarbamol IVPB 1 grams IVPB once over 1 hrs; (mix in NS 100 mL) Route: IVPB; ko1 Infused Over: 1 hrs; Site: right antecubital; 17:32 Follow up: Response: No adverse reaction; IV Status: Completed infusion; IV Intake: ko1 100ml 16:42 Drug: morphine IVP or IV 4 mg IVP once over 4 mins Route: IVP; Infused Over: 4 mins; ko1 Site: right antecubital; 16:57 Follow up: Response: No adverse reaction ko1 Disposition Summary: 05/22/24 17:30 Transfer Ordered Notes: Transfer Location: [facility] cp Reason: Higher level of care cp Condition: Stable cp Problem: new cp Symptoms: have improved cp Accepting Physician: DR Timothy Hemphill(05/22/24 19:23) ha1 Diagnosis - Fracture of thoracic vertebra - T12 cp - Fall on same level from slipping, tripping and stumbling without subsequent cp striking against object Forms: - Medication Reconciliation Form cp - SBAR form cp Addendum: 05/25/2024 10:02 Co-signature as Attending Physician, Hilario Kiran MD I reviewed the patient's care r n provided by the Advanced Practice Provider and agree with the diagnosis and treatment plan. Signatures: Dispatcher [employer] Hilario Howell MD MD rn Page, Corey, PA PA cp Subha Sheffield RN RN ap3 Sherly Chavez RN RN ha1 Britt Guerra RN RN ko1 Corrections: (The following items were deleted from the chart) 05/22 17:31 17:30 Doctor cp cp 17:55 17:31 Doctor cp cp 19:23 17:55 DR Timothy Hemphill cp ha1
--- NOTE | 2024-05-22 17:31 | ER ---
Nurse's Notes [facility] Name: Ema Haywood Age: 73 yrs Sex: Female : 1950 Arrival Date: 05/22/2024 Time: 12:53 Bed 18 Private MD: Diagnosis: Fracture of thoracic vertebra-T12;Fall on same level from slipping, tripping and stumbling without subsequent striking against object Presentation: 05/22 13:05 Chief complaint: Patient states: she tripped and fell in her shop today, landing on "my ap3 buttox and kathia my back in a way it never has been before". Coronavirus screen: At this time, the client does not indicate any symptoms associated with coronavirus-19. Ebola Screen: No symptoms or risks identified at this time. Risk Assessment: Do you want to hurt yourself or someone else? Patient reports no desire to harm self or others. Onset of symptoms was May 22, 2024. Care prior to arrival: Medication(s) given: 100mcg fentanyl IN, and 50mcg fentanyl IV IV initiated. 18 GA, in the right antecubital area. 13:05 Method Of Arrival: EMS: [facility] ap3 13:05 Acuity: [place] 3 ap3 15:00 Initial Sepsis Screen: Does the patient meet any 2 criteria? No. Patient's initial ko1 sepsis screen is negative. Does the patient have a suspected source of infection? No. Patient's initial sepsis screen is negative. Triage Assessment: 13:07 General: Appears uncomfortable, Behavior is calm, cooperative, appropriate for age. ap3 Pain: Complains of pain in back Pain currently is 8 out of 10 on a pain scale. Neuro: Level of Consciousness is awake, alert, obeys commands, Oriented to person, place, time, situation, Appropriate for age. Cardiovascular: Patient's skin is warm and dry. Respiratory: Airway is patent Respiratory effort is even, unlabored, Respiratory pattern is regular, symmetrical. Historical: - Allergies: 13:07 Codeine; ap3 13:07 IV contrast; ap3 13:07 Metoprolol Tartrate; ap3 13:07 NSAIDS; ap3 13:07 Sulfa (Sulfonamide Antibiotics); ap3 13:07 sulfates; ap3 - Home Meds: 18:49 cyclobenzaprine 10 mg Oral tablet [Active]; fluoxetine 40 mg Oral capsule [Active]; ko1 levothyroxine 88 mcg capsule [Active]; lisinopril-hydrochlorothiazide 20-12.5 mg Oral tablet [Active]; - PMHx: 13:07 Anxiety; Hypertensive disorder; Hypothyroidism; ap3 - PSHx: 13:07 bilateral knees; section; Right hip; teeth extracted; ap3 - Immunization history:: Client reports receiving the 2nd dose of the Covid vaccine, Flu vaccine is not up to date. - Infectious Disease History:: Denies. - Social history:: Smoking status: Patient denies any tobacco usage or history of. Screenin:08 Abuse screen: Denies threats or abuse. Nutritional screening: No deficits noted. ap3 Tuberculosis screening: No symptoms or risk factors identified. 13:30 [facility] ED Fall Risk Assessment (Adult) History of falling in the last 3 months, ko1 including since admission Yes- single mechanical fall (1 pt) Confusion or Disorientation No (0 pts) Intoxicated or Sedated No (0 pts) Impaired Gait No (0 pts) Mobility Assist Device Used No (0 pt) Altered Elimination No (0 pt) Score/Fall Risk Level 0 - 2 = Low Risk Oriented to surroundings, Maintained a safe environment, Educated pt \\T\\ family on fall prevention, incl call for assistance when getting out of bed, Assessed \\T\\ reinforced patient's understanding of fall precautions, Hourly rounding (assess needs \\T\\ fall precautionary measures) done. Assessment: 13:30 General: Appears uncomfortable, Behavior is cooperative, appropriate for age. Pain: ko1 Complains of pain in back. Neuro: No deficits noted. Cardiovascular: No deficits noted. Respiratory: No deficits noted. GI: No deficits noted. No signs and/or symptoms were reported involving the gastrointestinal system. : No deficits noted. No signs and/or symptoms were reported regarding the genitourinary system. EENT: No deficits noted. No signs and/or symptoms were reported regarding the EENT system. Derm: No deficits noted. No signs and/or symptoms reported regarding the dermatologic system. Musculoskeletal: No deficits noted. No signs and/or symptoms reported regarding the musculoskeletal system. 16:22 Reassessment: attempted to ambulate patient without success, patient could not tolerate ko1 sitting on side of bed. Vital Signs: 13:19 Weight 62.14 kg; Height 5 ft. 1 in. ; ap3 15:07 BP 142 / 94; Pulse 77; Resp 15; Pulse Ox 96% on R/A; ko1 16:22 BP 133 / 78; Pulse 79; Resp 15; Pulse Ox 99% ; ko1 18:10 BP 147 / 82; Pulse 76; Resp 15; Pulse Ox 99% on R/A; ko1 13:19 Body Mass Index 25.89 (62.14 kg, 154.94 cm) ap3 ED Course: 13:04 Patient arrived in ED. em1 13:07 Triage completed. ap3 13:16 Keo Arthur PA is PHCP. cp 13:16 Hilario Kiran MD is Attending Physician. cp 13:21 Britt Guerra, SALONI is Primary Nurse. ko1 13:30 Initial lab(s) drawn, by me, sent to lab. T\\T\\S collected, blood band applied to patient. ko1 Maintain EMS IV. Dressing intact. Good blood return noted. Site clean \\T\\ dry. Gauge \\T\\ site: 18g, right AC. Flushed with 10 mL NS. 13:30 Patient has correct armband on for positive identification. Allergy band placed. Fall ko1 risk band placed. Bed in low position. Call light in reach. Side rails up X2. Provided Education on: labs. Pulse ox on. NIBP on. Door closed. Noise minimized. Lights dimmed. Warm blanket given. Pillow given. 13:38 Basic Metabolic Panel Sent. ko1 13:38 CBC with Diff Sent. ko1 13:38 Type And Screen Sent. ko1 13:44 CT Abd/Pelvis - Without Contrast In Process Unspecified. EDMS 14:50 XRAY Femur RIGHT In Process Unspecified. EDMS 15:00 Arm band placed on right wrist. Patient placed in an exam room, on a stretcher, on ko1 pulse oximetry, Patient notified of wait time. 16:57 Antibody Identification Sent. ko1 17:36 transfer initiated with [facility] [place]. em1 17:44 pt accepted to [facility] ER to Timothy Ozuna. em1 18:00 Report given to Cintia GUALLPA in ER at [facility]. ko1 18:10 No provider procedures requiring assistance completed. Patient transferred, IV remains ko1 in place. Administered Medications: 13:51 Drug: Diazepam IVP 2 mg IVP once Route: IVP; Site: right antecubital; ko1 14:06 Follow up: Response: No adverse reaction ko1 14:58 Drug: morphine IVP or IV 4 mg IVP once over 4 mins Route: IVP; Infused Over: 4 mins; ko1 Site: right antecubital; 15:13 Follow up: Response: No adverse reaction ko1 15:23 Drug: Diazepam IVP 2 mg IVP once Route: IVP; Site: right antecubital; ko1 15:38 Follow up: Response: No adverse reaction ko1 16:42 Drug: Methocarbamol IVPB 1 grams IVPB once over 1 hrs; (mix in NS 100 mL) Route: IVPB; ko1 Infused Over: 1 hrs; Site: right antecubital; 17:32 Follow up: Response: No adverse reaction; IV Status: Completed infusion; IV Intake: ko1 100ml 16:42 Drug: morphine IVP or IV 4 mg IVP once over 4 mins Route: IVP; Infused Over: 4 mins; ko1 Site: right antecubital; 16:57 Follow up: Response: No adverse reaction ko1 Medication: 13:30 VIS not applicable for this client. ko1 Intake: 17:32 IV: 100ml; Total: 100ml. ko1 Outcome: 17:30 ER care complete, transfer ordered by MD. garner 18:10 Condition: stable ko1 18:10 Instructed on the need for transfer, Demonstrated understanding of instructions, 19:22 Transferred by ground EMS to [facility], Transfer form completed. X-rays sent ha1 w/ patient. 19:23 Patient left the ED. ha1 Signatures: Dispatcher [employer] Jono Lipscomb em1 Keo Arthur PA PA cp Prokisch, Amanda RN RN ap3 Sherly Chavez RN RN ha1 Britt Guerra RN RN ko1
[2024-05-22 19:29] VITALS: O2SAT 99
[2024-05-22 19:30] VITALS: BP 147/82
== END 2024-05-22 19:23 | disposition short-term general hospital (02) ==
LOC: ER 12:53
DX: S22.089A Unspecified fracture of T11-T12 vertebra, initial encounter for closed fracture (principal); W01.0XXA Fall on same level from slipping, tripping and stumbling without subsequent striking against object, initial encounter; E03.9 Hypothyroidism, unspecified; I10 Essential (primary) hypertension
CPT/HCPCS: 96365; 85025; 80048; 36415; 86900; 86850; 86870; 86901; 74176; 73552; 96375; 99285; J3360; J2800

== ENCOUNTER 2024-06-23 15:03 | Emergency (ER) | payer OTHER ==
[2024-06-23] MEDS ORDERED: OXYMETAZOLINE HCL 0.05% 15ML NAS ONE (15:06)
[2024-06-23 15:47] LABS: Absolute Lymphocytes (CBC) 0.7 K/uL (0.7-4.9); Absolute Monocytes 0.6 K/uL (0.1-1.3); Absolute Neutrophil 9.3 K/uL (1.8-8.0); Basophils % 0.4 % (0-1.3); Eosinophils % 0.5 % (0-4.4); Hematocrit 36.4 % (36.0-45.0); Hemoglobin 12.4 g/dL (12.0-15.0); Lymphocytes % 6.6 % (15.3-44.8); MCV 85.2 fL (80-100); MPV 7.3 fL (7.6-11.3); Monocytes % 5.2 % (3.3-12.3); Neutrophils % 87.3 % (41.7-73.7); Platelets 242 thou/uL (152-406); RBC Red Blood Cell Count 4.27 M/uL (3.86-4.86); Red Cell Distribution Width 13.7 % (12.1-15.2)
[2024-06-23 16:03] LABS: Albumin 3.9 g/dL (3.4-5.0); Albumin/Globulin Ratio 0.9 (1.1-1.8); Anion Gap 10.5 mEq/L (5.0-15.0); Bilirubin Total 0.4 mg/dL (0.2-1.0); Globulin 4.3 g/dL (2.3-3.5); Potassium 3.5 mEq/L (3.5-5.1); Protein, Total 8.2 g/dL (6.4-8.2)
[2024-06-23 16:11] LABS: PT Prothrombin Time 11.4 SECONDS (9.4-12.5); PTT, Activated Partial Thromb 36.4 SECONDS (24.3-36.9); Protime INR 1.09
--- NOTE | 2024-06-23 16:37 | RAD REPORT ---
EXAM: Chest Single View HISTORY: poss aspiration COMPARISON: 04/24/2024 FINDINGS: LUNGS/PLEURA: The lungs are clear. No pleural effusions or pneumothorax. No pulmonary edema. MEDIASTINUM: The mediastinal silhouette is within normal limits. CARDIAC: The cardiac silhouette is within normal limits. UPPER ABDOMEN: No significant abnormality. BONES: No acute abnormality. LINES/TUBES/OTHER: N/A IMPRESSION: No evidence of acute cardiopulmonary disease.
--- NOTE | 2024-06-23 16:47 | RAD REPORT ---
EXAMINATION: CT MAXILLOFACIAL WITHOUT CONTRAST CLINICAL INDICATION: Female, 73 years old. epistaxis, recent procedure TECHNIQUE: Axial images were obtained through the facial bones and orbits without intravenous contras t. Sagittal and coronal reconstructions were created from the data. One or more of the following dose reduction techniques were used: Automated exposure control, adjustment of the mA and/or kV accor ding to patient size, and/or iterative reconstruction. Unless otherwise specified, incidental findings do not require dedicated imaging follow-up. [id number]. COMPARISON: No prior exam. FINDINGS: SOFT TISSUE: No significant abnormalities. BONES: No evidence of fracture, dislocation, or aggressive osseous lesions. No lesion of the visuali zed skull base or calvarium. ORBITS: The globes are intact. No intraorbital hemorrhage or mass. SINUSES: Tiny air-fluid level left maxillary sinus. Ethmoid air cell thickening. There are some secre tions in the right nasal passage but no findings to suggest source of epistaxis. BRAIN: Age advanced cerebral atrophy. IMPRESSION: No acute findings. Right nasal passage secretions and some mild paranasal sinus thickening but no spe cific source of epistaxis identified..
--- NOTE | 2024-06-23 16:57 | EDPHYS ---
Physician Documentation [facility] Name: Ema Haywood Age: 73 yrs Sex: Female : 1950 Arrival Date: 06/23/2024 Time: 15:03 Bed 7 Private MD: ED Physician Sushil Rao HPI: 06/23 16:19 This 73 yrs old Female presents to ER via EMS with complaints of Nose Bleed. rt 16:19 Patient presents to the ED with epistaxis. This morning, the patient had an outpatient rt procedure on her back. Reportedly, there was some object placed in the nose, unclear if it was an NG tube, and PA or nasotracheal intubation. Patient developed epistaxis which did resolve spontaneously, however, when o'clock were loose, she reports having a worsening amount of bleeding. She states that she does not know if she aspirated or not. She denies other acute complaints at this time, symptoms are moderate in severity, no other aggravating or alleviating factors.. Historical: - Allergies: 15:19 Codeine; cm10 15:19 IV contrast; cm10 15:19 Metoprolol Tartrate; cm10 15:19 NSAIDS; cm10 15:19 Sulfa (Sulfonamide Antibiotics); cm10 15:19 sulfates; cm10 - PMHx: 15:19 Anxiety; Hypertensive disorder; Hypothyroidism; cm10 - PSHx: 15:19 bilateral knees; section; Right hip; teeth extracted; cm10 - Immunization history:: Adult Immunizations up to date. - Infectious Disease History:: Denies. - Social history:: Smoking status: unknown. ROS: 16:19 Constitutional: Negative for fever, chills, and weight loss, Cardiovascular: Negative rt for chest pain, palpitations, and edema, Respiratory: Negative for shortness of breath, cough, wheezing, and pleuritic chest pain, Abdomen/GI: Negative for abdominal pain, nausea, vomiting, diarrhea, and constipation, Skin: Negative for injury, rash, and discoloration, Neuro: Negative for headache, weakness, numbness, tingling, and seizure, 16:19 ENT: Positive for nose bleed, Exam: 17:49 Constitutional: This is a well developed, well nourished patient who is awake, alert, rt and in no acute distress. Head/Face: Normocephalic, atraumatic. Chest/axilla: Normal chest wall appearance and motion. Nontender with no deformity. No lesions are appreciated. Cardiovascular: Regular rate and rhythm with a normal S1 and S2. No gallops, murmurs, or rubs. Normal PMI, no JVD. No pulse deficits. Respiratory: Lungs have equal breath sounds bilaterally, clear to auscultation and percussion. No rales, rhonchi or wheezes noted. No increased work of breathing, no retractions or nasal flaring. Abdomen/GI: Soft, non-tender, with normal bowel sounds. No distension or tympany. No guarding or rebound. No evidence of tenderness throughout. 17:49 ENT: Blood noted in both naris, no active bleeding.. Vital Signs: 15:17 BP 171 / 85; Pulse 100; Resp 18; Temp 98.5; Pulse Ox 100% on R/A; Weight 63.5 kg; cm10 Height 5 ft. 1 in. ; Pain 0/10; 16:00 BP 155 / 84; Pulse 95; Resp 16; Pulse Ox 96% ; cm10 17:12 BP 155 / 89; Pulse 93; Resp 17; Pulse Ox 97% ; cm10 15:17 Body Mass Index 26.45 (63.50 kg, 154.94 cm) cm10 15:17 Pain Scale: Adult cm10 MDM: 15:09 Medical Screening Exam initiated rt 17:49 Differential diagnosis: Epistaxis, sinus fracture, acute blood loss anemia. Data rt reviewed: vital signs, nurses notes, lab test result(s), radiologic studies. I considered the following discharge prescriptions or medication management in the emergency department Medications were administered in the Emergency Department. See MAR. Independent interpretation of the following test(s) in the Emergency Department X-Ray: My interpretation is No aspiration pneumonia seen on interpretation of x-ray images. Care significantly affected by the following chronic conditions: Hypertension. Counseling: I had a detailed discussion with the patient and/or guardian regarding the historical points, exam findings, and any diagnostic results supporting the discharge/admit diagnosis, lab results, radiology results, the need for outpatient follow up. Response to treatment: the patient's symptoms have resolved after treatment, Epistaxis has resolved following Afrin, nasal Clamping. 06/23 15:10 Order name: CBC with Diff; Complete Time: 16:14 rt 06/23 15:10 Order name: CMP; Complete Time: 16:14 rt 06/23 15:10 Order name: PT-INR; Complete Time: 16:14 rt 06/23 15:10 Order name: Ptt, Activated; Complete Time: 16:14 rt 06/23 15:10 Order name: Chest Single View XRAY; Complete Time: 16:50 rt 06/23 15:10 Order name: CT Facial Bones W/O Con; Complete Time: 16:50 rt Administered Medications: 15:10 Drug: Oxymetazoline Intranasal Drops (0.05 %) 3 sprays Intranasal once Route: cm10 Intranasal; Site: both nares; Disposition Summary: 06/23/24 16:56 Discharge Ordered Notes: Location: Home rt Problem: new rt Symptoms: are resolved rt Condition: Stable rt Diagnosis - Epistaxis rt Followup: rt - With: Private Physician - When: 2 - 3 days - Reason: Discharge Instructions: - Discharge Summary Sheet rt - Nosebleed, Adult rt Forms: - Medication Reconciliation Form rt - Antibiotic Education rt - Prescription Opioid Use rt - Patient Portal Instructions rt - Leadership Thank You Letter rt Signatures: Dispatcher [employer] Sushil Michael MD MD rt Talisha Cartagena, RN RN cm10
--- NOTE | 2024-06-23 16:57 | ER ---
Nurse's Notes [facility] Name: Ema Haywood Age: 73 yrs Sex: Female : 1950 Arrival Date: 06/23/2024 Time: 15:03 Bed 7 Private MD: Diagnosis: Epistaxis Presentation: 06/23 15:17 Chief complaint: EMS states: Called to patient's home for nose bleed. Pt had surgery cm10 this morning and had a "tube in her nose" and she started coughing and began having a nose bleed. Coronavirus screen: Client denies travel out of the [place] in the last 14 days. Ebola Screen: Patient denies travel to an Ebola-affected area in the 21 days before illness onset. Initial Sepsis Screen: Does the patient meet any 2 criteria? HR > 90 bpm. Does the patient have a suspected source of infection? No. Patient's initial sepsis screen is negative. Risk Assessment: Do you want to hurt yourself or someone else? Patient reports no desire to harm self or others. Onset of symptoms was June 23, 2024. 15:17 Method Of Arrival: EMS: [facility] cm10 15:17 Acuity: PEYMAN 3 cm10 Triage Assessment: 15:20 General: Appears uncomfortable, Behavior is calm, cooperative. Pain: Denies pain. EENT: cm10 Nares with bleeding noted. Neuro: No deficits noted. Level of Consciousness is awake, alert, obeys commands, Oriented to person, place, time, situation, Appropriate for age. Respiratory: No deficits noted. Airway is patent Respiratory effort is even, unlabored, Respiratory pattern is regular, symmetrical. Musculoskeletal: No deficits noted. Range of motion: intact in all extremities. Historical: - Allergies: 15:19 Codeine; cm10 15:19 IV contrast; cm10 15:19 Metoprolol Tartrate; cm10 15:19 NSAIDS; cm10 15:19 Sulfa (Sulfonamide Antibiotics); cm10 15:19 sulfates; cm10 - PMHx: 15:19 Anxiety; Hypertensive disorder; Hypothyroidism; cm10 - PSHx: 15:19 bilateral knees; section; Right hip; teeth extracted; cm10 - Immunization history:: Adult Immunizations up to date. - Infectious Disease History:: Denies. - Social history:: Smoking status: unknown. Screenin:20 [facility] ED Fall Risk Assessment (Adult) History of falling in the last 3 months, cm10 including since admission No falls in past 3 months (0 pts) Confusion or Disorientation No (0 pts) Intoxicated or Sedated No (0 pts) Impaired Gait No (0 pts) Mobility Assist Device Used No (0 pt) Altered Elimination No (0 pt) Score/Fall Risk Level 0 - 2 = Low Risk Oriented to surroundings, Maintained a safe environment, Hourly rounding (assess needs \\T\\ fall precautionary measures) done. Abuse screen: Denies threats or abuse. Denies injuries from another. Nutritional screening: No deficits noted. Tuberculosis screening: No symptoms or risk factors identified. Assessment: 15:15 Reassessment: Nose clamp placed on patient at this time. cm10 15:50 Reassessment: Nose bleed noted to have stopped. cm10 Vital Signs: 15:17 BP 171 / 85; Pulse 100; Resp 18; Temp 98.5; Pulse Ox 100% on R/A; Weight 63.5 kg; cm10 Height 5 ft. 1 in. ; Pain 0/10; 16:00 BP 155 / 84; Pulse 95; Resp 16; Pulse Ox 96% ; cm10 17:12 BP 155 / 89; Pulse 93; Resp 17; Pulse Ox 97% ; cm10 15:17 Body Mass Index 26.45 (63.50 kg, 154.94 cm) cm10 15:17 Pain Scale: Adult cm10 ED Course: 15:05 Patient arrived in ED. cm10 15:09 Sushil Rao MD is Attending Physician. rt 15:19 Triage completed. cm10 15:19 Arm band placed on right wrist. Patient placed in an exam room, on a stretcher. cm10 15:20 Patient has correct armband on for positive identification. Bed in low position. Call cm10 light in reach. Side rails up X2. Provided Education on: ER process and procedures. 15:40 Initial lab(s) drawn, by me, sent to lab. Inserted saline lock: 22 gauge in right cm10 antecubital area, using aseptic technique. Blood collected. Flushed with 10 mL NS. 16:22 Chest Single View XRAY In Process Unspecified. EDMS 16:33 CT Facial Bones W/O Con In Process Unspecified. EDMS 17:06 Talisha Cartagena, RN is Primary Nurse. cm10 17:09 No provider procedures requiring assistance completed. IV discontinued, intact, cm10 bleeding controlled, No redness/swelling at site. Pressure dressing applied. Administered Medications: 15:10 Drug: Oxymetazoline Intranasal Drops (0.05 %) 3 sprays Intranasal once Route: cm10 Intranasal; Site: both nares; Medication: 15:20 VIS not applicable for this client. cm10 Outcome: 16:56 Discharge ordered by . rt 17:12 Discharged to home ambulatory, cm10 17:12 Condition: good 17:12 Discharge instructions given to patient, Instructed on discharge instructions, follow up and referral plans. Demonstrated understanding of instructions, follow-up care, 17:16 Patient left the ED. cm10 Signatures: Dispatcher [employer] EDME Sushil Rao MD MD rt Talisha Cartagena, RN RN cm10
[2024-06-23 20:22] VITALS: TEMP 98.5
[2024-06-23 20:25] VITALS: BP 155/89; O2SAT 97
== END 2024-06-23 17:16 | disposition home or self-care (01) ==
LOC: ER 15:03
DX: R04.0 Epistaxis (principal)
CPT/HCPCS: 36415; 70486; 71045; 76377; 80053; 85025; 85610; 85730; 99284